=== PATIENT | female | born 1945 | race Caucasian/White ===

== ENCOUNTER → 2016-11-22 | Outpatient (CLI) | payer MEDICARE ==
--- NOTE | 2016-11-25 09:27 | MM ---
Reason for exam: screening (asymptomatic). Last mammogram was performed 2 years ago. History: Patient is postmenopausal. Took estrogen for 2 years beginning at age 55. Took progesterone for 2 years beginning at age 55. Physical Findings: A clinical breast exam by your physician is recommended on an annual basis and results should be correlated with mammographic findings. MG Screening Mammo w CAD Bilateral CC and MLO view(s) were taken. Prior study comparison: November 11, 2014, bilateral MG screening mammo w CAD. October 13, 2012, bilateral digital screening mammo w/CAD. There are scattered fibroglandular densities. Finding: There are typically benign round calcifications in the right breast. There is no discrete abnormality. ASSESSMENT: Benign, BI-RAD 2 RECOMMENDATION: Routine screening mammogram of both breasts in 1 year.
== END | disposition home or self-care (01) ==
LOC: RADMAMWWP 09:31
PROVIDERS: ATTEND Family Medicine
DX: Z12.31 Encounter for screening mammogram for malignant neoplasm of breast (principal)

== ENCOUNTER → 2016-12-04 | Outpatient (CLI) | payer MEDICARE ==
--- NOTE | 2016-12-04 14:55 | US ---
EXAMINATION TYPE: US kidneys/renal and bladder DATE OF EXAM: 12/04/2016 2:23 PM COMPARISON: NONE CLINICAL HISTORY: CKD N18.9. EXAM MEASUREMENTS: Right Kidney: 9.1 x 3.4 x 4.6 cm Left Kidney: 9.5 x 3.9 x 3.8 cm Findings: Right Kidney: no evidence of hydronephrosis or mass Left Kidney: dense echogenic area mid = 0.7cm Bladder: appears wnl Bilateral Jets seen: yes There is no evidence for hydronephrosis at this point in time. Nonobstructing calculus left kidney. N o masses are identified. The urinary bladder is anechoic. Bilateral ureteral jets are seen. IMPRESSION: Nonobstructing calculus left kidney.
== END | disposition home or self-care (01) ==
LOC: RADUSWWP 14:02
PROVIDERS: ATTEND Family Medicine
DX: N20.0 Calculus of kidney (principal); N18.9 Chronic kidney disease, unspecified
CPT/HCPCS: 76770

== ENCOUNTER → 2016-12-14 | Outpatient (CLI) | payer MEDICARE ==
[2016-12-16 09:50] LABS: Mis test requested (Non-blood) TP Urine 24Hr
== END | disposition home or self-care (01) ==
LOC: LABWHC1 11:03
PROVIDERS: ATTEND Family Medicine
DX: N18.9 Chronic kidney disease, unspecified (principal)
CPT/HCPCS: 36415; 81050; 82575; 84156

== ENCOUNTER → 2017-12-12 | Outpatient (CLI) | payer MEDICARE ==
--- NOTE | 2017-12-15 11:31 | MM ---
Reason for exam: screening (asymptomatic). Last mammogram was performed 1 year and 1 month ago. History: Patient is postmenopausal. Took estrogen for 2 years beginning at age 55. Took progesterone for 2 years beginning at age 55. Physical Findings: A clinical breast exam by your physician is recommended on an annual basis and results should be correlated with mammographic findings. MG Screening Mammo w CAD Bilateral CC and MLO view(s) were taken. Prior study comparison: November 22, 2016, bilateral MG screening mammo w CAD. November 11, 2014, bilateral MG screening mammo w CAD. The breast tissue is heterogeneously dense. This may lower the sensitivity of mammography. Stable benign calcifications. There is no discrete abnormality. No significant changes when compared with prior studies. ASSESSMENT: Benign, BI-RAD 2 RECOMMENDATION: Routine screening mammogram of both breasts in 1 year.
== END | disposition home or self-care (01) ==
LOC: RADMAMWWP 08:09
PROVIDERS: ATTEND Family Medicine
DX: Z12.31 Encounter for screening mammogram for malignant neoplasm of breast (principal)
CPT/HCPCS: 77067

== ENCOUNTER → 2019-04-12 | Outpatient (CLI) | payer MEDICARE ==
--- NOTE | 2019-04-12 13:21 | BD ---
EXAMINATION TYPE: Axial Bone Density DATE OF EXAM: 04/12/2019 COMPARISON: 10/08/2013 CLINICAL HISTORY: Known osteoporosis. Postmenopausal female. Height: 60 IN Weight: 132 LBS RISK FACTORS HISTORY OF: Active: MODERATE Postmenopausal woman: AGE 53 Take estrogen and/or progesterone medications: NOT NOW How long: PREVIOUSLY TOOK FOR 2 YEARS MEDICATIONS: Additional Medications: ANTIDEPRESSANT, CHOLESTEROL MED, PRILOSEC EXAM MEASUREMENTS: Bone mineral densitometry was performed using the [employer]. Bone mineral density as measured about the Lumbar spine is: ----- L1-L4(G/cm2): 0.977 T Score Values are as follows: ----- L2: -1.3 ----- L3: -1.1 ----- L4: -2.1 ----- L1-L4: -1.7 Bone mineral density has: Increased 0.5% since study of: 10/08/2013 Bone mineral density about the R hip (g/cm2): 0.688 Bone mineral density about the L hip (g/cm2): 0.704 T Score values are as follows: -----R Neck: -2.5 -----L Neck: -2.4 -----R Total: -1.5 -----L Total: -1.8 Bone mineral density has: Decreased -3.8% since study of: 10/08/2013 IMPRESSION: Osteopenia (T Score between -2.5 and -1). Values are borderline for osteoporosis. There is slightly increased risk of fracture and the patient may be considered for treatment. Re-Screen 2-5 years. NOTE: T-SCORE=SD OF THE YOUNG ADULT MEAN.
--- NOTE | 2019-04-13 14:27 | MM ---
Reason for exam: screening (asymptomatic). Last mammogram was performed 1 year and 4 months ago. History: Patient is postmenopausal. Took estrogen for 2 years beginning at age 55. Took progesterone for 2 years beginning at age 55. Physical Findings: A clinical breast exam by your physician is recommended on an annual basis and results should be correlated with mammographic findings. MG Screening Mammo w CAD Bilateral CC and MLO view(s) were taken. Prior study comparison: December 12, 2017, bilateral MG screening mammo w CAD. November 22, 2016, bilateral MG screening mammo w CAD. There are scattered fibroglandular densities. No significant changes when compared with prior studies. ASSESSMENT: Benign, BI-RAD 2 RECOMMENDATION: Routine screening mammogram of both breasts in 1 year.
== END ==
LOC: RADMAMWWP 11:47
PROVIDERS: ATTEND Family Medicine
DX: Z12.31 Encounter for screening mammogram for malignant neoplasm of breast (principal); M85.80 Other specified disorders of bone density and structure, unspecified site; M81.0 Age-related osteoporosis without current pathological fracture
CPT/HCPCS: 77067; 77080

== ENCOUNTER → 2025-01-04 | Outpatient (CLI) | payer MEDICARE ==
--- NOTE | 2025-01-04 10:40 | CA ---
Transthoracic Echo Report Name: Destinee Bella Age: 79 Gender: F : 1945 Exam Date: 01/04/2025 08:24 Exam Location: [place] [facility] Ht (in): 61 Wt (lb): 126 Ordering Physician: Garrick Loredo MD Attending/Referring Phys: Abdelrahman Scruggs DO Rn Med Surg Chio Barclay RDCS Procedure CPT: Indications: R42 Dizziness Cardiac Hx: Technical Quality: Fair Contrast 1: Total Dose (mL): Contrast 2: Total Dose (mL): MEASUREMENTS (Male / Female) Normal Values 2D ECHO LV Diastolic Diameter PLAX 3.9 cm 4.2 - 5.9 / 3.9 - 5.3 cm LV Systolic Diameter PLAX 2.7 cm IVS Diastolic Thickness 0.9 cm 0.6 - 1.0 / 0.6 - 0.9 cm LVPW Diastolic Thickness 1.1 cm 0.6 - 1.0 / 0.6 - 0.9 cm LV Relative Wall Thickness 0.5 LVOT Diameter 1.9 cm LV Diastolic Volume MOD BP 71.0 cm??? 67 - 155 / 56 - 104 cm??? LV Systolic Volume MOD BP 28.2 cm??? 22 - 58 / 19 - 49 cm??? LV Ejection Fraction MOD BP 60.3 % >= 55 % LV Cardiac Index MOD BP 1872.9 cm???/min???m??? LV Diastolic Volume MOD 4C 60.0 cm??? LV Systolic Volume MOD 4C 23.0 cm??? LV Ejection Fraction MOD 4C 61.6 % LV Cardiac Index MOD 4C 1615.7 cm???/min???m??? LV Diastolic Length 4C 6.8 cm LV Systolic Length 4C 5.0 cm LV Diastolic Volume MOD 2C 80.4 cm??? LV Systolic Volume MOD 2C 30.6 cm??? LV Ejection Fraction MOD 2C 62.0 % LV Cardiac Index MOD 2C 2179.9 cm???/min???m??? LV Diastolic Length 2C 7.2 cm LV Systolic Length 2C 5.6 cm LA Volume 37.5 cm??? 18 - 58 / 22 - 52 cm??? LA Volume Index 23.8 cm???/m??? 16 - 28 cm???/m??? Ascending Aorta Diameter 2.8 cm DOPPLER AV Peak Velocity 128.2 cm/s AV Peak Gradient 6.6 mmHg AV Mean Velocity 94.1 cm/s AV Mean Gradient 3.8 mmHg AV Velocity Time Integral 28.7 cm LVOT Peak Velocity 109.0 cm/s LVOT Peak Gradient 4.8 mmHg LVOT Velocity Time Integral 22.4 cm LVOT Stroke Volume 63.2 cm??? LVOT Stroke Volume Index 40.7 ml/m??? LVOT Cardiac Index 2762.4 cm???/min???m??? AV Area Cont Eq vti 2.2 cm??? AV Area Cont Eq pk 2.4 cm??? MV Area PHT 3.1 cm??? Mitral E Point Velocity 77.8 cm/s Mitral A Point Velocity 98.2 cm/s Mitral E to A Ratio 0.8 MV Deceleration Time 241.3 ms TR Peak Velocity 233.6 cm/s TR Peak Gradient 21.8 mmHg Right Atrial Pressure 5.0 mmHg Pulmonary Artery Systolic Pressu 26.8 mmHg Right Ventricular Systolic Press 26.8 mmHg PV Peak Velocity 82.7 cm/s PV Peak Gradient 2.7 mmHg FINDINGS Left Ventricle Left ventricular ejection fraction is estimated at 55-60 %. Mildly increased posterior wall thickness. Left ventricular cavity size normal. No obvious regional wall motion abnormalities. Right Ventricle Normal right ventricular size and function. Right ventricular systolic pressure within normal limits. Right Atrium Normal right atrial size. Left Atrium Normal left atrial size. Mitral Valve Structurally normal mitral valve. No evidence for mitral valve prolapse. No mitral stenosis. Trace to mild mitral regurgitation. Aortic Valve Trileaflet aortic valve. No aortic valve stenosis or regurgitation. Tricuspid Valve Structurally normal tricuspid valve. No tricuspid stenosis. Mild tricuspid regurgitation. Pulmonic Valve Structurally normal pulmonic valve. No pulmonic regurgitation. Trace pulmonic regurgitation. Pericardium No pericardial effusion. Aorta Normal size aortic root and proximal ascending aorta. CONCLUSIONS Left ventricular ejection fraction is estimated at 55-60 %. No obvious regional wall motion abnormalities. Normal right ventricular size and function. No significant valvular dysfunction Previewed by: Dr Reyes Robin (Electronically Signed) Final Date: 04 January 2025 10:39
== END | disposition home or self-care (01) ==
LOC: RADECHMAIN 08:03
PROVIDERS: ATTEND Family Medicine
DX: R07.9 Chest pain, unspecified (principal); R42 Dizziness and giddiness
CPT/HCPCS: 93306